=== PATIENT | male | born 1940 ===

== ENCOUNTER 2024-03-31 09:49 | Emergency (ER) | payer MEDICARE, OTHER ==
[2024-03-31] MEDS ORDERED: Morphine 2 MG/ML VIAL ONE ×2 (10:21→11:06)
[2024-03-31] MEDS ORDERED: Ondansetron PF 4 MG/2 ML Vial ONE (10:21)
[2024-03-31] MEDS ORDERED: CEFAZOLIN 1 GM VIAL ONE (10:22)
[2024-03-31] MEDS ORDERED: Sodium Chloride 0.9% 100 ML ONE (10:22)
[2024-03-31] MEDS ORDERED: Lidocaine 1% (PF) 30 ML VIAL ONE (10:58)
[2024-03-31] MEDS ORDERED: traMADol HCl 50 MG TAB ONE (11:06)
[2024-03-31 11:07] LABS: Prothrombin Time 13.2 sec (12.0-14.7)
[2024-03-31 11:08] LABS: PTT 29.6 sec (22.9-36.1)
[2024-03-31 11:16] LABS: ALT (SGPT) 28 U/L (8-55); AST (SGOT) 26 U/L (5-34); Albumin 3.4 g/dL (3.4-4.8); Alkaline Phosphatase 74 U/L (40-110); Anion Gap 13 mmol/L (10-20); BUN (Urea Nitrogen) 14 mg/dL (8.4-25.7); Bilirubin, Total 0.5 mg/dL (0.2-1.2); Calc. Creatinine Clearance 0 mL/min (70-130); Carbon Dioxide 23 mmol/L (23-31); Chloride 107 mmol/L (98-107); Estimated GFR 67; Globulin 3.1 g/dL (2.4-3.5); Glucose 127 mg/dL (83-110); Protein, Total 6.5 g/dL (5.8-8.1); Sodium 139 mmol/L (136-145)
[2024-03-31 11:19] LABS: #Eosinophils 0.2 thou/uL (0.0-0.7); #Lymphocytes 2.1 thou/uL (1.20-3.40); #Monocytes 0.7 thou/uL (0.11-0.59); #Neutrophils 4.9 thou/uL (1.40-6.50); %Basophils 0.6 % (0.0-1.0); %Lymphocytes 26.9 % (21.0-51.0); %Monocytes 8.9 % (0.0-10.0); %Neutrophils 61.7 % (42.0-75.0); Hematocrit 40.8 % (42.0-52.0); Hemoglobin 13.6 g/dL (14.0-18.0); Mean Corpuscular HGB CONC 33.2 g/dL (32.0-36.0); Mean Corpuscular Hemoglobin 27.4 pg (27.0-31.0); Mean Corpuscular Volume 82.5 fl (78.0-98.0); Mean Platelet Volume 7.4 fL (7.4-10.4); Platelet Count 230 10x3/uL (130-400); RBC Distribution Width 16.3 % (11.5-14.5); Red Blood Cell (RBC) Count 4.94 mill/uL (4.70-6.10)
[2024-03-31] MEDS ORDERED: Bacitracin 1 PK ONE (11:56)
== END 2024-03-31 12:15 | disposition home or self-care (01) ==
LOC: NAV ERS 09:49
DX: S62.331B Displaced fracture of neck of second metacarpal bone, left hand, initial encounter for open fracture (principal); S66.321A Laceration of extensor muscle, fascia and tendon of left index finger at wrist and hand level, initial encounter; I10 Essential (primary) hypertension; Z79.899 Other long term (current) drug therapy; W31.1XXA Contact with metalworking machines, initial encounter; M79.645 Pain in left finger(s)
CPT/HCPCS: 12042; 36415; 80053; 85025; 85610; 85730; 96374; 96375; 96376; J0690; J2272; J2405